=== PATIENT | female | born 1955 | race Caucasian/White ===

== ENCOUNTER 2018-09-22 13:31 | Emergency (ER) | payer OTHER ==
[~2018-09-22] VITALS: Ht 165.1 cm; Wt 78.0 kg
[2018-09-22] MEDS ORDERED: ATENOLOL-CHLOR1 EACH (14:01)
[2018-09-22] MEDS ORDERED: ALBUTEROL1.25 MG/3 (14:01)
[2018-09-22] MEDS ORDERED: CRESTOR10 MG (14:02)
[2018-09-22] MEDS ORDERED: COZAAR25 MG (14:02)
[2018-09-22] MEDS ORDERED: LOVAZA1 GM (14:03)
[2018-09-22] MEDS ORDERED: SINGULAIR5 MG (14:03)
== END 2018-09-22 15:48 | disposition home or self-care (01) ==
LOC: ER 13:31
DX: J22 Unspecified acute lower respiratory infection (principal)